=== PATIENT | male | born 1940 | race Caucasian/White ===

== ENCOUNTER 2022-12-16 13:49 | Emergency (ER) | payer MEDICARE ==
[2022-12-16 14:22] LABS: #Eosinphils 0.1 thou/uL (0.0-0.7); #Lymphocytes 1.1 thou/uL (1.20-3.40); #Monocytes 0.6 thou/uL (0.11-0.59); #Neutrophils 5.5 thou/uL (1.40-6.50); %Basophils 0.5 % (0.0-1.0); %Eosinophils 1.1 % (0.0-10.0); %Lymphocytes 14.8 % (21.0-51.0); %Neutrophils 75.6 % (42.0-75.0); Hemoglobin 7.1 g/dL (14.0-18.0); Mean Corpuscular HGB CONC 33.9 g/dL (32.0-36.0); Mean Corpuscular Hemoglobin 34.5 pg (27.0-31.0); Mean Platelet Volume 7.7 fL (7.4-10.4); Platelet Count 257 10x3/uL (130-400); RBC Distribution Width 14.6 % (11.5-14.5); Red Blood Cell (RBC) Count 2.06 mill/uL (4.70-6.10); White Blood Cell (WBC) Count 7.3 10x3/uL (4.8-10.8)
[2022-12-16 14:46] LABS: ALT (SGPT) Less than 7 U/L (8-55); AST (SGOT) 10 U/L (5-34); Albumin 2.8 g/dL (3.4-4.8); Alkaline Phosphatase 99 U/L (40-110); Anion Gap 12 mmol/L (10-20); BUN (Urea Nitrogen) 26 mg/dL (8.4-25.7); Bilirubin, Total 0.6 mg/dL (0.2-1.2); Calc. Creatinine Clearance 0 mL/min (70-130); Carbon Dioxide 30 mmol/L (23-31); Chloride 99 mmol/L (98-107); Estimated GFR 14; Globulin 2.1 g/dL (2.4-3.5); Glucose 193 mg/dL (83-110); Potassium 3.4 mmol/L (3.5-5.1); Protein, Total 4.9 g/dL (5.8-8.1); Sodium 138 mmol/L (136-145)
== END 2022-12-16 18:34 ==
LOC: ERS 13:49
DX: D63.1 Anemia in chronic kidney disease (principal); I13.2 Hypertensive heart and chronic kidney disease with heart failure and with stage 5 chronic kidney disease, or end stage renal disease; I50.9 Heart failure, unspecified; N18.6 End stage renal disease; E11.22 Type 2 diabetes mellitus with diabetic chronic kidney disease; E78.5 Hyperlipidemia, unspecified; Z79.82 Long term (current) use of aspirin
CPT/HCPCS: 36415; 80053; 85025; 86850; 86900; 86901; 99285

== ENCOUNTER 2022-12-22 00:11 | Inpatient (IN) | payer MEDICARE ==
[2022-12-22] MEDS ORDERED: Cefepime 2 GM VIAL ONE (01:36)
[2022-12-22] MEDS ORDERED: Vancomycin 1.5 GRAM/300 ML BAG 1.5 GM in Premix Bag 1 BAG IVPB SCH (01:45)
[2022-12-22 02:36] LABS: #Eosinphils 0.1 thou/uL (0.0-0.7); #Lymphocytes 0.6 thou/uL (1.20-3.40); #Monocytes 0.3 thou/uL (0.11-0.59); #Neutrophils 7.3 thou/uL (1.40-6.50); %Basophils 0.5 % (0.0-1.0); %Eosinophils 0.9 % (0.0-10.0); %Lymphocytes 6.7 % (21.0-51.0); %Neutrophils 87.9 % (42.0-75.0)
[2022-12-22] MEDS ORDERED: FENTANYL 50 MCG/ML 1 ML VIAL ONE (02:37)
[2022-12-22 02:38] LABS: ALT (SGPT) Less than 7 U/L (8-55); AST (SGOT) 12 U/L (5-34); Albumin 2.8 g/dL (3.4-4.8); Alkaline Phosphatase 98 U/L (40-110); Anion Gap 18 mmol/L (10-20); BUN (Urea Nitrogen) 29 mg/dL (8.4-25.7); Bilirubin, Total 0.6 mg/dL (0.2-1.2); CK (CPK) 26 U/L (30-200); Calc. Creatinine Clearance 0 mL/min (70-130); Calcium 8.4 mg/dL (7.8-10.44); Carbon Dioxide 23 mmol/L (23-31); Chloride 99 mmol/L (98-107); Estimated GFR 10; Globulin 2.5 g/dL (2.4-3.5); Glucose 139 mg/dL (83-110); Potassium 4.2 mmol/L (3.5-5.1); Protein, Total 5.3 g/dL (5.8-8.1); Sodium 136 mmol/L (136-145)
[2022-12-22 03:12] LABS: Hemoglobin 8.5 g/dL (14.0-18.0); Red Blood Cell (RBC) Count 2.68 mill/uL (4.70-6.10); White Blood Cell (WBC) Count 17.3 10x3/uL (4.8-10.8)
[2022-12-22 03:13] LABS: Mean Corpuscular HGB CONC 30.9 g/dL (32.0-36.0); Mean Corpuscular Hemoglobin 31.7 pg (27.0-31.0); Mean Platelet Volume 7.5 fL (7.4-10.4); Platelet Count 306 10x3/uL (130-400); RBC Distribution Width 14.6 % (11.5-14.5)
[2022-12-22 03:38] LABS: CKMB 1.4 ng/mL (0-6.6)
[2022-12-22] MEDS ORDERED: Aspirin Chewable 81 MG TAB ONE (04:07)
[2022-12-22] MEDS ORDERED: Ipratropium/Albuterol 3 ML NEB EZPAP PRN (04:51)
[2022-12-22] MEDS ORDERED: Dextrose 50% Abboject 50 ML SYRINGE SLOW IVP PRN (04:53)
[2022-12-22] MEDS ORDERED: Morphine 2 MG/ML VIAL ONE (04:53)
[2022-12-22] MEDS ORDERED: Dextrose 5% in Water 1,000 ML IV PRN (04:53)
[2022-12-22] MEDS ORDERED: Ipratropium/Albuterol 3 ML NEB ONE (04:53)
[2022-12-22 05:45] LABS: Lactic Acid 2.2 mmol/L (0.5-2.2)
[2022-12-22] MEDS ORDERED: Vancomycin Diaylsis Sliding Scale (Wt 71-99) FS SCH (06:00)
[2022-12-22 06:07] LABS: Troponin I 0.286 ng/mL (< 0.028)
[2022-12-22 07:13] LABS: SARS-CoV-2 NAA Rapid Test Not Detected (NotDetected)
[2022-12-22] MEDS ORDERED: Vancomycin HCl 500 MG in Sodium Chloride 0.9% 100 ML IVPB SCH ×2 (08:00→17:00)
[2022-12-22 08:09] LABS: Troponin I 0.321 ng/mL (< 0.028)
[2022-12-22 08:17] LABS: HBSAB Concentration Less than 8.00 mIU/mL; HBSAg Index 0.24 S/CO (0-0.99); Hep B Core Total Ab Non-Reactive (NonReactive); Hep B Core Total Index 0.05 S/CO (0-0.79); Hep B Surf AB Non-Reactive (NonReactive); Hep B Surf Ag Non-Reactive S/CO (NonReactive); Hep C IgG Ab Non-Reactive (NonReactive); Hep C Index 0.06 S/CO (0-0.79)
[2022-12-22 09:00] LABS: Albumin 2.9 g/dL (3.4-4.8); Anion Gap 14 mmol/L (10-20); BUN (Urea Nitrogen) 32 mg/dL (8.4-25.7); BUN/Creatinine Ratio 5.82; Calc. Creatinine Clearance 0 mL/min (70-130); Calcium 9.1 mg/dL (7.8-10.44); Carbon Dioxide 30 mmol/L (23-31); Chloride 100 mmol/L (98-107); Estimated GFR 10; Glucose 91 mg/dL (83-110); Phosphorus 4.2 mg/dL (2.3-4.7); Potassium 4.1 mmol/L (3.5-5.1); Sodium 140 mmol/L (136-145)
[2022-12-22] MEDS ORDERED: Heparin 10,000 UNITS/ 10 ML VIAL ONE (09:08)
[2022-12-22] MEDS ORDERED: Iopamidol-370 76% 500 ML MDV (1 ML CHARGE) ONE (10:56)
[2022-12-22 11:34] VITALS: BMI 21.0
[2022-12-22] MEDS: Heparin 5,000 UNITS/ML VIAL SC SCH ×2 (12:11→21:37)
[2022-12-22] MEDS ORDERED: Cefepime 0.5 GM, Admixture Fee 1 EACH in Sodium Chloride 0.9% 100 ML IVPB SCH (18:00)
[2022-12-22] MEDS: Midodrine HCl 5 MG TAB PO SCH ×2 (18:20→21:37)
[2022-12-23] MEDS ORDERED: Cefepime 1 GM in Sodium Chloride 0.9% 100 ML IVPB SCH (02:00)
[2022-12-23] MEDS: Midodrine HCl 5 MG TAB PO SCH (09:11)
[2022-12-23] MEDS: Sacubitril 24MG/Valsartan 26 MG TAB PO SCH ×2 (09:11→20:31)
[2022-12-23] MEDS: Heparin 5,000 UNITS/ML VIAL SC SCH ×2 (09:11→20:31)
[2022-12-23 11:12] LABS: #Eosinphils 0.2 thou/uL (0.0-0.7); #Monocytes 0.7 thou/uL (0.11-0.59); #Neutrophils 10.6 thou/uL (1.40-6.50); %Basophils 0.2 % (0.0-1.0); %Eosinophils 1.9 % (0.0-10.0); %Lymphocytes 7.8 % (21.0-51.0); %Monocytes 5.4 % (0.0-10.0); %Neutrophils 84.7 % (42.0-75.0); Hemoglobin 8.6 g/dL (14.0-18.0); Mean Corpuscular HGB CONC 31.6 g/dL (32.0-36.0); Mean Corpuscular Hemoglobin 32.4 pg (27.0-31.0); Mean Platelet Volume 7.2 fL (7.4-10.4); Platelet Count 291 10x3/uL (130-400); RBC Distribution Width 14.5 % (11.5-14.5); Red Blood Cell (RBC) Count 2.66 mill/uL (4.70-6.10); White Blood Cell (WBC) Count 12.6 10x3/uL (4.8-10.8)
[2022-12-23 11:27] LABS: Vancomycin, Random 15.1 ug/mL (See Comment)
[2022-12-23 11:30] LABS: Anion Gap 11 mmol/L (10-20); BUN (Urea Nitrogen) 29 mg/dL (8.4-25.7); Calc. Creatinine Clearance 15 mL/min (70-130); Calcium 8.8 mg/dL (7.8-10.44); Carbon Dioxide 33 mmol/L (23-31); Chloride 99 mmol/L (98-107); Estimated GFR 13; Glucose 143 mg/dL (83-110); Potassium 4.1 mmol/L (3.5-5.1); Sodium 139 mmol/L (136-145)
[2022-12-23] MEDS: Cefepime 0.5 GM, Admixture Fee 1 EACH in Sodium Chloride 0.9% 100 ML IVPB SCH (14:28)
[2022-12-23] MEDS: Ferrous Sulfate 325 MG TAB PO SCH ×2 (14:28→20:31)
[2022-12-23] MEDS: EPOETIN ALFA-EPBX (ESRD) 10,000 UNIT/ML VIAL SC SCH (14:32)
[2022-12-23] MEDS: HumaLOG 300 UNITS/3 ML VIAL SC PRN (18:40)
[2022-12-24 07:24] LABS: #Eosinphils 0.5 thou/uL (0.0-0.7); #Lymphocytes 1.3 thou/uL (1.20-3.40); #Monocytes 0.8 thou/uL (0.11-0.59); #Neutrophils 8.9 thou/uL (1.40-6.50); %Basophils 0.3 % (0.0-1.0); %Eosinophils 4.4 % (0.0-10.0); %Lymphocytes 11.3 % (21.0-51.0); %Monocytes 6.8 % (0.0-10.0); %Neutrophils 77.2 % (42.0-75.0); Hemoglobin 8.2 g/dL (14.0-18.0); Mean Corpuscular HGB CONC 32.5 g/dL (32.0-36.0); Mean Corpuscular Hemoglobin 32.8 pg (27.0-31.0); Mean Platelet Volume 7.2 fL (7.4-10.4); Platelet Count 285 10x3/uL (130-400); RBC Distribution Width 14.6 % (11.5-14.5); White Blood Cell (WBC) Count 11.5 10x3/uL (4.8-10.8)
[2022-12-24 07:32] LABS: Anion Gap 15 mmol/L (10-20); BUN (Urea Nitrogen) 37 mg/dL (8.4-25.7); Calc. Creatinine Clearance 12 mL/min (70-130); Carbon Dioxide 26 mmol/L (23-31); Chloride 100 mmol/L (98-107); Estimated GFR 11; Glucose 130 mg/dL (83-110); Potassium 3.5 mmol/L (3.5-5.1); Sodium 137 mmol/L (136-145)
[2022-12-24] MEDS ORDERED: Albumin 25% 25 GM/100 ML BOT IVPB SCH ×2 (08:45→10:45)
[2022-12-24] MEDS: Ferrous Sulfate 325 MG TAB PO SCH ×3 (08:57→21:46)
[2022-12-24] MEDS: Sacubitril 24MG/Valsartan 26 MG TAB PO SCH ×3 (08:57→21:46)
[2022-12-24] MEDS: Heparin 5,000 UNITS/ML VIAL SC SCH ×2 (08:57→21:46)
[2022-12-24] MEDS ORDERED: Heparin 10,000 UNITS/ 10 ML VIAL ONE (09:03)
[2022-12-24] MEDS: Midodrine HCl 5 MG TAB PO SCH ×3 (09:13→21:46)
[2022-12-24] MEDS: Acetaminophen 325 MG TAB PO PRN (14:58)
[2022-12-24] MEDS: Cefepime 0.5 GM, Admixture Fee 1 EACH in Sodium Chloride 0.9% 100 ML IVPB SCH (16:27)
[2022-12-24] MEDS ORDERED: Vancomycin HCl 750 MG in Sodium Chloride 0.9% 250 ML 250 ML IVPB SCH (17:00)
[2022-12-24] MEDS: Aspirin 81 mg Enteric Coated Tablet PO SCH (21:46)
[2022-12-24] MEDS: Folic Acid/Vit B Comp W-C PO SCH (21:46)
[2022-12-25 06:49] LABS: #Eosinphils 0.4 thou/uL (0.0-0.7); #Lymphocytes 1.6 thou/uL (1.20-3.40); #Monocytes 0.9 thou/uL (0.11-0.59); #Neutrophils 7.7 thou/uL (1.40-6.50); %Basophils 0.3 % (0.0-1.0); %Eosinophils 3.9 % (0.0-10.0); %Monocytes 8.3 % (0.0-10.0); %Neutrophils 72.5 % (42.0-75.0); Hemoglobin 8.8 g/dL (14.0-18.0); Mean Corpuscular HGB CONC 33.1 g/dL (32.0-36.0); Mean Corpuscular Hemoglobin 33.4 pg (27.0-31.0); Mean Platelet Volume 6.8 fL (7.4-10.4); Platelet Count 294 10x3/uL (130-400); RBC Distribution Width 14.5 % (11.5-14.5); Red Blood Cell (RBC) Count 2.63 mill/uL (4.70-6.10); White Blood Cell (WBC) Count 10.6 10x3/uL (4.8-10.8)
[2022-12-25 07:03] LABS: Anion Gap 13 mmol/L (10-20); BUN (Urea Nitrogen) 23 mg/dL (8.4-25.7); Calc. Creatinine Clearance 17 mL/min (70-130); Calcium 8.2 mg/dL (7.8-10.44); Carbon Dioxide 30 mmol/L (23-31); Chloride 98 mmol/L (98-107); Estimated GFR 16; Glucose 187 mg/dL (83-110); Potassium 3.5 mmol/L (3.5-5.1); Sodium 137 mmol/L (136-145)
[2022-12-25] MEDS: Sacubitril 24MG/Valsartan 26 MG TAB PO SCH ×2 (08:57→20:27)
[2022-12-25] MEDS: Midodrine HCl 5 MG TAB PO SCH ×3 (08:57→20:29)
[2022-12-25] MEDS: Ferrous Sulfate 325 MG TAB PO SCH ×3 (08:57→20:28)
[2022-12-25] MEDS: Heparin 5,000 UNITS/ML VIAL SC SCH ×2 (08:57→20:29)
[2022-12-25] MEDS: Cefepime 0.5 GM, Admixture Fee 1 EACH in Sodium Chloride 0.9% 100 ML IVPB SCH (14:54)
[2022-12-25] MEDS ORDERED: Megestrol Acetate 800 MG/20 ML UDCUP PO SCH (16:00)
[2022-12-25] MEDS: Folic Acid/Vit B Comp W-C PO SCH (20:28)
[2022-12-25] MEDS: Aspirin 81 mg Enteric Coated Tablet PO SCH (20:29)
[2022-12-26] MEDS: HumaLOG 300 UNITS/3 ML VIAL SC PRN ×2 (06:22→17:16)
[2022-12-26 08:09] LABS: #Eosinphils 0.4 thou/uL (0.0-0.7); #Lymphocytes 1.8 thou/uL (1.20-3.40); #Monocytes 0.8 thou/uL (0.11-0.59); #Neutrophils 7.4 thou/uL (1.40-6.50); %Basophils 0.4 % (0.0-1.0); %Eosinophils 3.6 % (0.0-10.0); %Lymphocytes 17.1 % (21.0-51.0); %Neutrophils 70.8 % (42.0-75.0); Hemoglobin 8.9 g/dL (14.0-18.0); Mean Corpuscular HGB CONC 32.6 g/dL (32.0-36.0); Mean Corpuscular Hemoglobin 33.1 pg (27.0-31.0); Platelet Count 298 10x3/uL (130-400); RBC Distribution Width 14.6 % (11.5-14.5); Red Blood Cell (RBC) Count 2.69 mill/uL (4.70-6.10); White Blood Cell (WBC) Count 10.4 10x3/uL (4.8-10.8)
[2022-12-26 08:26] LABS: Vancomycin, Random 20.2 ug/mL (See Comment)
[2022-12-26 08:28] LABS: Anion Gap 15 mmol/L (10-20); BUN (Urea Nitrogen) 37 mg/dL (8.4-25.7); Calc. Creatinine Clearance 12 mL/min (70-130); Calcium 8.6 mg/dL (7.8-10.44); Carbon Dioxide 29 mmol/L (23-31); Chloride 97 mmol/L (98-107); Estimated GFR 10; Glucose 193 mg/dL (83-110); Potassium 3.7 mmol/L (3.5-5.1); Sodium 137 mmol/L (136-145)
[2022-12-26] MEDS ORDERED: Megestrol Acetate 400 MG/10 ML UDCUP PO SCH (09:00)
[2022-12-26] MEDS: Ferrous Sulfate 325 MG TAB PO SCH ×3 (13:12→20:13)
[2022-12-26] MEDS: Megestrol Acetate 800 MG/20 ML UDCUP PO SCH (13:12)
[2022-12-26] MEDS: Heparin 5,000 UNITS/ML VIAL SC SCH ×2 (13:13→20:13)
[2022-12-26] MEDS: Midodrine HCl 5 MG TAB PO SCH ×4 (13:13→20:13)
[2022-12-26] MEDS: Sacubitril 24MG/Valsartan 26 MG TAB PO SCH ×2 (13:13→20:12)
[2022-12-26] MEDS: Cefepime 0.5 GM, Admixture Fee 1 EACH in Sodium Chloride 0.9% 100 ML IVPB SCH (14:35)
[2022-12-26] MEDS ORDERED: Heparin 10,000 UNITS/ 10 ML VIAL ONE (16:00)
[2022-12-26] MEDS ORDERED: Vancomycin 250 MG in Sodium Chloride 0.9% 100 ML IVPB SCH (17:00)
[2022-12-26] MEDS: Aspirin 81 mg Enteric Coated Tablet PO SCH (20:13)
[2022-12-26] MEDS: Folic Acid/Vit B Comp W-C PO SCH (20:13)
[2022-12-27] MEDS: HumaLOG 300 UNITS/3 ML VIAL SC PRN ×2 (05:34→17:25)
[2022-12-27] MEDS: Sacubitril 24MG/Valsartan 26 MG TAB PO SCH ×2 (08:50→21:47)
[2022-12-27] MEDS: Megestrol Acetate 800 MG/20 ML UDCUP PO SCH (08:50)
[2022-12-27] MEDS: Heparin 5,000 UNITS/ML VIAL SC SCH ×2 (08:51→21:48)
[2022-12-27] MEDS: Midodrine HCl 5 MG TAB PO SCH ×3 (08:51→21:48)
[2022-12-27] MEDS: Ferrous Sulfate 325 MG TAB PO SCH ×3 (08:51→21:48)
[2022-12-27] MEDS: Cefepime 0.5 GM, Admixture Fee 1 EACH in Sodium Chloride 0.9% 100 ML IVPB SCH (14:54)
[2022-12-27] MEDS: Sevelamer Carbonate 800 MG TAB PO SCH (17:21)
[2022-12-27] MEDS: Folic Acid/Vit B Comp W-C PO SCH (21:47)
[2022-12-27] MEDS: Atorvastatin Calcium 40 MG TAB PO SCH (21:48)
[2022-12-27] MEDS: Aspirin 81 mg Enteric Coated Tablet PO SCH (21:48)
[2022-12-27] MEDS: Acetaminophen 325 MG TAB PO PRN (21:48)
[2022-12-28 05:40] LABS: #Eosinphils 0.2 thou/uL (0.0-0.7); #Lymphocytes 2.2 thou/uL (1.20-3.40); #Monocytes 0.9 thou/uL (0.11-0.59); #Neutrophils 10.1 thou/uL (1.40-6.50); %Basophils 0.2 % (0.0-1.0); %Eosinophils 1.6 % (0.0-10.0); %Lymphocytes 16.7 % (21.0-51.0); %Monocytes 6.5 % (0.0-10.0); %Neutrophils 75.1 % (42.0-75.0); Mean Corpuscular HGB CONC 31.7 g/dL (32.0-36.0); Mean Corpuscular Hemoglobin 32.5 pg (27.0-31.0); Platelet Count 292 10x3/uL (130-400); RBC Distribution Width 15.5 % (11.5-14.5); Red Blood Cell (RBC) Count 2.76 mill/uL (4.70-6.10); White Blood Cell (WBC) Count 13.4 10x3/uL (4.8-10.8)
[2022-12-28 05:59] LABS: Anion Gap 11 mmol/L (10-20); BUN (Urea Nitrogen) 50 mg/dL (8.4-25.7); Calc. Creatinine Clearance 11 mL/min (70-130); Calcium 9.3 mg/dL (7.8-10.44); Carbon Dioxide 31 mmol/L (23-31); Chloride 101 mmol/L (98-107); Estimated GFR 9; Glucose 242 mg/dL (83-110); Potassium 4.2 mmol/L (3.5-5.1); Sodium 139 mmol/L (136-145)
[2022-12-28] MEDS: HumaLOG 300 UNITS/3 ML VIAL SC PRN ×4 (05:59→20:57)
[2022-12-28] MEDS: Sacubitril 24MG/Valsartan 26 MG TAB PO SCH ×2 (08:50→20:57)
[2022-12-28] MEDS: Sevelamer Carbonate 800 MG TAB PO SCH ×3 (08:50→17:12)
[2022-12-28] MEDS: Ferrous Sulfate 325 MG TAB PO SCH ×3 (08:50→20:57)
[2022-12-28] MEDS: Heparin 5,000 UNITS/ML VIAL SC SCH ×2 (08:50→20:57)
[2022-12-28] MEDS: Midodrine HCl 5 MG TAB PO SCH (08:50)
[2022-12-28] MEDS ORDERED: Sevelamer Carbonate 800 MG TAB PO SCH (09:00)
[2022-12-28] MEDS: Megestrol Acetate 40 MG TAB PO SCH (09:52)
[2022-12-28] MEDS ORDERED: Carvedilol 3.125 MG TAB PO SCH ×2 (10:30→10:45)
[2022-12-28] MEDS: Cefepime 0.5 GM, Admixture Fee 1 EACH in Sodium Chloride 0.9% 100 ML IVPB SCH (15:05)
[2022-12-28] MEDS: Carvedilol 3.125 MG TAB PO SCH (17:12)
[2022-12-28] MEDS: Aspirin 81 mg Enteric Coated Tablet PO SCH (20:57)
[2022-12-28] MEDS: Atorvastatin Calcium 40 MG TAB PO SCH (20:57)
[2022-12-28] MEDS: Folic Acid/Vit B Comp W-C PO SCH (20:57)
[2022-12-29 05:45] LABS: #Basophils 0.1 thou/uL (0.0-0.2); #Eosinphils 0.2 thou/uL (0.0-0.7); #Lymphocytes 2.1 thou/uL (1.20-3.40); #Monocytes 0.8 thou/uL (0.11-0.59); #Neutrophils 10.9 thou/uL (1.40-6.50); %Basophils 0.4 % (0.0-1.0); %Eosinophils 1.7 % (0.0-10.0); %Monocytes 5.9 % (0.0-10.0); Hemoglobin 9.2 g/dL (14.0-18.0); Mean Corpuscular HGB CONC 32.8 g/dL (32.0-36.0); Mean Corpuscular Hemoglobin 33.2 pg (27.0-31.0); Mean Platelet Volume 7.3 fL (7.4-10.4); Platelet Count 266 10x3/uL (130-400); RBC Distribution Width 15.7 % (11.5-14.5); Red Blood Cell (RBC) Count 2.78 mill/uL (4.70-6.10); White Blood Cell (WBC) Count 14.1 10x3/uL (4.8-10.8)
[2022-12-29 06:02] LABS: Anion Gap 18 mmol/L (10-20); BUN (Urea Nitrogen) 69 mg/dL (8.4-25.7); Calc. Creatinine Clearance 9 mL/min (70-130); Calcium 9.6 mg/dL (7.8-10.44); Carbon Dioxide 27 mmol/L (23-31); Chloride 97 mmol/L (98-107); Estimated GFR 7; Glucose 280 mg/dL (83-110); Potassium 4.5 mmol/L (3.5-5.1); Sodium 137 mmol/L (136-145)
[2022-12-29] MEDS: HumaLOG 300 UNITS/3 ML VIAL SC PRN ×3 (06:30→21:28)
[2022-12-29] MEDS: Sevelamer Carbonate 800 MG TAB PO SCH ×3 (09:23→17:17)
[2022-12-29] MEDS: Ferrous Sulfate 325 MG TAB PO SCH ×3 (09:23→21:28)
[2022-12-29] MEDS: Heparin 5,000 UNITS/ML VIAL SC SCH ×2 (09:23→21:28)
[2022-12-29] MEDS: Megestrol Acetate 40 MG TAB PO SCH (09:24)
[2022-12-29] MEDS: Carvedilol 3.125 MG TAB PO SCH ×2 (09:24→17:17)
[2022-12-29] MEDS: Sacubitril 24MG/Valsartan 26 MG TAB PO SCH ×2 (09:24→21:27)
[2022-12-29] MEDS: Insulin Glargine 30 UNITS/0.3 ML VIAL SC SCH (12:32)
[2022-12-29] MEDS: Cefepime 0.5 GM, Admixture Fee 1 EACH in Sodium Chloride 0.9% 100 ML IVPB SCH (14:04)
[2022-12-29] MEDS ORDERED: Heparin 10,000 UNITS/ 10 ML VIAL ONE (15:57)
[2022-12-29] MEDS: Folic Acid/Vit B Comp W-C PO SCH (21:27)
[2022-12-29] MEDS: Aspirin 81 mg Enteric Coated Tablet PO SCH (21:28)
[2022-12-29] MEDS: Atorvastatin Calcium 40 MG TAB PO SCH (21:28)
[2022-12-30] MEDS: HumaLOG 300 UNITS/3 ML VIAL SC PRN ×4 (05:15→21:27)
[2022-12-30 05:57] LABS: #Eosinphils 0.1 thou/uL (0.0-0.7); #Lymphocytes 1.8 thou/uL (1.20-3.40); #Monocytes 0.8 thou/uL (0.11-0.59); #Neutrophils 8.5 thou/uL (1.40-6.50); %Basophils 0.3 % (0.0-1.0); %Eosinophils 0.8 % (0.0-10.0); %Lymphocytes 16.4 % (21.0-51.0); %Monocytes 6.8 % (0.0-10.0); %Neutrophils 75.7 % (42.0-75.0); Hemoglobin 9.2 g/dL (14.0-18.0); Mean Corpuscular HGB CONC 32.5 g/dL (32.0-36.0); Mean Platelet Volume 7.3 fL (7.4-10.4); Platelet Count 273 10x3/uL (130-400); RBC Distribution Width 15.9 % (11.5-14.5); Red Blood Cell (RBC) Count 2.77 mill/uL (4.70-6.10); White Blood Cell (WBC) Count 11.2 10x3/uL (4.8-10.8)
[2022-12-30 06:30] LABS: ALT (SGPT) 10 U/L (8-55); AST (SGOT) 12 U/L (5-34); Albumin 3.2 g/dL (3.4-4.8); Alkaline Phosphatase 92 U/L (40-110); Anion Gap 16 mmol/L (10-20); BUN (Urea Nitrogen) 37 mg/dL (8.4-25.7); Bilirubin, Total 0.3 mg/dL (0.2-1.2); Calc. Creatinine Clearance 13 mL/min (70-130); Calcium 8.9 mg/dL (7.8-10.44); Carbon Dioxide 26 mmol/L (23-31); Chloride 99 mmol/L (98-107); Estimated GFR 12; Globulin 2.1 g/dL (2.4-3.5); Glucose 255 mg/dL (83-110); Potassium 3.8 mmol/L (3.5-5.1); Protein, Total 5.3 g/dL (5.8-8.1); Sodium 137 mmol/L (136-145)
[2022-12-30] MEDS: Megestrol Acetate 40 MG TAB PO SCH (09:27)
[2022-12-30] MEDS: Sacubitril 24MG/Valsartan 26 MG TAB PO SCH ×2 (09:28→21:24)
[2022-12-30] MEDS: Ferrous Sulfate 325 MG TAB PO SCH ×3 (09:28→21:23)
[2022-12-30] MEDS: Insulin Glargine 30 UNITS/0.3 ML VIAL SC SCH (09:29)
[2022-12-30] MEDS: Sevelamer Carbonate 800 MG TAB PO SCH ×3 (09:29→16:26)
[2022-12-30] MEDS: Carvedilol 3.125 MG TAB PO SCH ×2 (09:29→16:26)
[2022-12-30] MEDS: Heparin 5,000 UNITS/ML VIAL SC SCH ×2 (09:29→21:23)
[2022-12-30] MEDS: Cefepime 0.5 GM, Admixture Fee 1 EACH in Sodium Chloride 0.9% 100 ML IVPB SCH (14:00)
[2022-12-30] MEDS: EPOETIN ALFA-EPBX (ESRD) 10,000 UNIT/ML VIAL SC SCH (14:01)
[2022-12-30] MEDS: Acetaminophen 325 MG TAB PO PRN (16:26)
[2022-12-30] MEDS: Aspirin 81 mg Enteric Coated Tablet PO SCH (21:22)
[2022-12-30] MEDS: Atorvastatin Calcium 40 MG TAB PO SCH (21:22)
[2022-12-30] MEDS: Folic Acid/Vit B Comp W-C PO SCH (21:23)
[2022-12-31] MEDS: Ondansetron PF 4 MG/2 ML Vial IVP PRN ×3 (02:06→14:31)
[2022-12-31 05:25] LABS: #Basophils 0.1 thou/uL (0.0-0.2); #Eosinphils 0.1 thou/uL (0.0-0.7); #Neutrophils 14.4 thou/uL (1.40-6.50); %Basophils 0.8 % (0.0-1.0); %Eosinophils 0.4 % (0.0-10.0); %Lymphocytes 11.1 % (21.0-51.0); %Monocytes 5.9 % (0.0-10.0); %Neutrophils 81.8 % (42.0-75.0); Hemoglobin 9.7 g/dL (14.0-18.0); Mean Corpuscular HGB CONC 32.8 g/dL (32.0-36.0); Mean Corpuscular Hemoglobin 33.3 pg (27.0-31.0); Mean Platelet Volume 7.6 fL (7.4-10.4); Platelet Count 266 10x3/uL (130-400); RBC Distribution Width 16.3 % (11.5-14.5); Red Blood Cell (RBC) Count 2.91 mill/uL (4.70-6.10); White Blood Cell (WBC) Count 17.6 10x3/uL (4.8-10.8)
[2022-12-31 05:48] LABS: ALT (SGPT) 13 U/L (8-55); AST (SGOT) 14 U/L (5-34); Albumin 3.4 g/dL (3.4-4.8); Alkaline Phosphatase 86 U/L (40-110); Anion Gap 17 mmol/L (10-20); BUN (Urea Nitrogen) 64 mg/dL (8.4-25.7); Bilirubin, Total 0.3 mg/dL (0.2-1.2); Calc. Creatinine Clearance 10 mL/min (70-130); Calcium 9.6 mg/dL (7.8-10.44); Carbon Dioxide 28 mmol/L (23-31); Chloride 99 mmol/L (98-107); Estimated GFR 8; Globulin 2.2 g/dL (2.4-3.5); Glucose 278 mg/dL (83-110); Potassium 4.5 mmol/L (3.5-5.1); Protein, Total 5.6 g/dL (5.8-8.1); Sodium 139 mmol/L (136-145)
[2022-12-31] MEDS: HumaLOG 300 UNITS/3 ML VIAL SC PRN ×2 (06:20→18:25)
[2022-12-31] MEDS: Ferrous Sulfate 325 MG TAB PO SCH ×3 (10:14→20:06)
[2022-12-31] MEDS: Sevelamer Carbonate 800 MG TAB PO SCH ×4 (10:14→18:27)
[2022-12-31] MEDS: Heparin 5,000 UNITS/ML VIAL SC SCH ×2 (10:15→20:06)
[2022-12-31] MEDS: Insulin Glargine 30 UNITS/0.3 ML VIAL SC SCH (10:15)
[2022-12-31] MEDS: Megestrol Acetate 40 MG TAB PO SCH (10:16)
[2022-12-31] MEDS: Sacubitril 24MG/Valsartan 26 MG TAB PO SCH ×2 (10:16→20:06)
[2022-12-31] MEDS: Carvedilol 3.125 MG TAB PO SCH ×2 (10:22→20:06)
[2022-12-31] MEDS ORDERED: Albumin 25% 25 GM/100 ML BOT IVPB PRN (11:12)
[2022-12-31] MEDS: Cefepime 0.5 GM, Admixture Fee 1 EACH in Sodium Chloride 0.9% 100 ML IVPB SCH (15:21)
[2022-12-31] MEDS ORDERED: Heparin 10,000 UNITS/ 10 ML VIAL ONE (15:32)
[2022-12-31] MEDS ORDERED: Ondansetron ODT 4 MG TAB PO PRN (17:09)
[2022-12-31] MEDS: Aspirin 81 mg Enteric Coated Tablet PO SCH (20:06)
[2022-12-31] MEDS: Folic Acid/Vit B Comp W-C PO SCH (20:06)
[2022-12-31] MEDS: Atorvastatin Calcium 40 MG TAB PO SCH (20:06)
[2022-12-31] MEDS ORDERED: Carvedilol 3.125 MG TAB PO SCH (21:00)
[2023-01-01] MEDS: Ondansetron PF 4 MG/2 ML Vial IVP PRN (04:19)
[2023-01-01] MEDS: HumaLOG 300 UNITS/3 ML VIAL SC PRN ×4 (06:05→20:55)
[2023-01-01 07:09] LABS: #Eosinphils 0.1 thou/uL (0.0-0.7); #Lymphocytes 1.9 thou/uL (1.20-3.40); #Monocytes 0.8 thou/uL (0.11-0.59); %Basophils 0.1 % (0.0-1.0); %Eosinophils 0.3 % (0.0-10.0); %Lymphocytes 9.4 % (21.0-51.0); %Monocytes 4.2 % (0.0-10.0); Hemoglobin 9.1 g/dL (14.0-18.0); Mean Corpuscular HGB CONC 32.3 g/dL (32.0-36.0); Mean Corpuscular Hemoglobin 33.5 pg (27.0-31.0); Mean Platelet Volume 7.5 fL (7.4-10.4); Platelet Count 291 10x3/uL (130-400); RBC Distribution Width 16.5 % (11.5-14.5); Red Blood Cell (RBC) Count 2.73 mill/uL (4.70-6.10); White Blood Cell (WBC) Count 19.7 10x3/uL (4.8-10.8)
[2023-01-01 07:32] LABS: ALT (SGPT) 16 U/L (8-55); AST (SGOT) 17 U/L (5-34); Albumin 3.7 g/dL (3.4-4.8); Alkaline Phosphatase 81 U/L (40-110); Anion Gap 19 mmol/L (10-20); BUN (Urea Nitrogen) 48 mg/dL (8.4-25.7); Bilirubin, Total 0.3 mg/dL (0.2-1.2); Calc. Creatinine Clearance 14 mL/min (70-130); Calcium 9.8 mg/dL (7.8-10.44); Carbon Dioxide 26 mmol/L (23-31); Chloride 98 mmol/L (98-107); Estimated GFR 13; Globulin 2.3 g/dL (2.4-3.5); Glucose 306 mg/dL (83-110); Potassium 4.7 mmol/L (3.5-5.1); Sodium 138 mmol/L (136-145)
[2023-01-01] MEDS: Insulin Glargine 30 UNITS/0.3 ML VIAL SC SCH (08:13)
[2023-01-01] MEDS: Sacubitril 24MG/Valsartan 26 MG TAB PO SCH ×2 (08:13→20:45)
[2023-01-01] MEDS: Heparin 5,000 UNITS/ML VIAL SC SCH ×2 (08:13→20:45)
[2023-01-01] MEDS: Sevelamer Carbonate 800 MG TAB PO SCH ×3 (08:13→16:16)
[2023-01-01] MEDS: Ferrous Sulfate 325 MG TAB PO SCH ×3 (08:14→20:45)
[2023-01-01] MEDS: Megestrol Acetate 40 MG TAB PO SCH (08:14)
[2023-01-01] MEDS: Carvedilol 3.125 MG TAB PO SCH ×2 (08:14→20:45)
[2023-01-01] MEDS: Cefepime 0.5 GM, Admixture Fee 1 EACH in Sodium Chloride 0.9% 100 ML IVPB SCH (14:35)
[2023-01-01] MEDS: Aspirin 81 mg Enteric Coated Tablet PO SCH (20:45)
[2023-01-01] MEDS: Folic Acid/Vit B Comp W-C PO SCH (20:45)
[2023-01-01] MEDS: Atorvastatin Calcium 40 MG TAB PO SCH (20:45)
[2023-01-02] MEDS: HumaLOG 300 UNITS/3 ML VIAL SC PRN ×3 (05:48→20:25)
[2023-01-02 06:05] LABS: Hemoglobin 8.8 g/dL (14.0-18.0); Mean Corpuscular HGB CONC 33.3 g/dL (32.0-36.0); Mean Corpuscular Hemoglobin 33.8 pg (27.0-31.0); Mean Platelet Volume 7.7 fL (7.4-10.4); Platelet Count 298 10x3/uL (130-400); RBC Distribution Width 16.8 % (11.5-14.5); Red Blood Cell (RBC) Count 2.59 mill/uL (4.70-6.10); White Blood Cell (WBC) Count 22.4 10x3/uL (4.8-10.8)
[2023-01-02 06:26] LABS: ALT (SGPT) 14 U/L (8-55); AST (SGOT) 10 U/L (5-34); Albumin 3.3 g/dL (3.4-4.8); Alkaline Phosphatase 99 U/L (40-110); Anion Gap 17 mmol/L (10-20); BUN (Urea Nitrogen) 73 mg/dL (8.4-25.7); Bilirubin, Total 0.3 mg/dL (0.2-1.2); Calc. Creatinine Clearance 11 mL/min (70-130); Calcium 9.8 mg/dL (7.8-10.44); Carbon Dioxide 28 mmol/L (23-31); Chloride 96 mmol/L (98-107); Estimated GFR 9; Globulin 2.1 g/dL (2.4-3.5); Glucose 337 mg/dL (83-110); Potassium 4.8 mmol/L (3.5-5.1); Protein, Total 5.4 g/dL (5.8-8.1); Sodium 136 mmol/L (136-145)
[2023-01-02 06:32] LABS: Band 4 % (5-11); Lymphocytes 12 % (21-51); MDiff Complete? YES; Macrocytosis SLIGHT = 6-15 cells (100X) (0-5/hpf); Monocytes 3 % (0-10); Neutrophil 81 % (42-75)
[2023-01-02] MEDS ORDERED: Heparin 10,000 UNITS/ 10 ML VIAL ONE (08:55)
[2023-01-02] MEDS ORDERED: Albumin 25% 25 GM/100 ML BOT IVPB SCH (10:30)
[2023-01-02] MEDS: Sevelamer Carbonate 800 MG TAB PO SCH ×3 (13:11→17:36)
[2023-01-02] MEDS: Carvedilol 3.125 MG TAB PO SCH ×2 (13:13→20:18)
[2023-01-02] MEDS: Ferrous Sulfate 325 MG TAB PO SCH ×3 (13:14→20:18)
[2023-01-02] MEDS: Heparin 5,000 UNITS/ML VIAL SC SCH ×2 (13:15→20:19)
[2023-01-02] MEDS: Insulin Glargine 30 UNITS/0.3 ML VIAL SC SCH (13:15)
[2023-01-02] MEDS: Megestrol Acetate 40 MG TAB PO SCH (13:16)
[2023-01-02] MEDS: Sacubitril 24MG/Valsartan 26 MG TAB PO SCH ×2 (13:17→20:19)
[2023-01-02] MEDS: Atorvastatin Calcium 40 MG TAB PO SCH (20:18)
[2023-01-02] MEDS: Aspirin 81 mg Enteric Coated Tablet PO SCH (20:18)
[2023-01-02] MEDS: Folic Acid/Vit B Comp W-C PO SCH (20:18)
[2023-01-03] MEDS: Ondansetron PF 4 MG/2 ML Vial IVP PRN ×2 (04:55→19:15)
[2023-01-03] MEDS: HumaLOG 300 UNITS/3 ML VIAL SC PRN ×4 (05:18→20:49)
[2023-01-03 06:09] LABS: #Eosinphils 0.1 thou/uL (0.0-0.7); #Lymphocytes 1.4 thou/uL (1.20-3.40); #Monocytes 0.8 thou/uL (0.11-0.59); #Neutrophils 13.8 thou/uL (1.40-6.50); %Basophils 0.1 % (0.0-1.0); %Eosinophils 0.6 % (0.0-10.0); %Lymphocytes 8.9 % (21.0-51.0); %Monocytes 4.7 % (0.0-10.0); %Neutrophils 85.7 % (42.0-75.0); Mean Corpuscular HGB CONC 32.4 g/dL (32.0-36.0); Mean Corpuscular Hemoglobin 33.8 pg (27.0-31.0); Mean Platelet Volume 7.8 fL (7.4-10.4); Platelet Count 305 10x3/uL (130-400); RBC Distribution Width 16.2 % (11.5-14.5); Red Blood Cell (RBC) Count 2.38 mill/uL (4.70-6.10); White Blood Cell (WBC) Count 16.1 10x3/uL (4.8-10.8)
[2023-01-03 06:23] LABS: ALT (SGPT) 12 U/L (8-55); AST (SGOT) 9 U/L (5-34); Albumin 3.5 g/dL (3.4-4.8); Alkaline Phosphatase 75 U/L (40-110); Anion Gap 17 mmol/L (10-20); BUN (Urea Nitrogen) 51 mg/dL (8.4-25.7); Bilirubin, Total 0.4 mg/dL (0.2-1.2); Calc. Creatinine Clearance 14 mL/min (70-130); Calcium 9.5 mg/dL (7.8-10.44); Carbon Dioxide 26 mmol/L (23-31); Chloride 96 mmol/L (98-107); Estimated GFR 13; Globulin 1.9 g/dL (2.4-3.5); Glucose 299 mg/dL (83-110); Potassium 4.2 mmol/L (3.5-5.1); Protein, Total 5.4 g/dL (5.8-8.1); Sodium 135 mmol/L (136-145)
[2023-01-03] MEDS: Megestrol Acetate 40 MG TAB PO SCH (08:58)
[2023-01-03] MEDS: Sacubitril 24MG/Valsartan 26 MG TAB PO SCH ×2 (08:58→20:34)
[2023-01-03] MEDS: Sevelamer Carbonate 800 MG TAB PO SCH ×3 (08:58→18:02)
[2023-01-03] MEDS: Insulin Glargine 30 UNITS/0.3 ML VIAL SC SCH (08:59)
[2023-01-03] MEDS: Carvedilol 3.125 MG TAB PO SCH ×2 (08:59→20:34)
[2023-01-03] MEDS: Ferrous Sulfate 325 MG TAB PO SCH ×3 (08:59→20:46)
[2023-01-03] MEDS: Heparin 5,000 UNITS/ML VIAL SC SCH ×2 (09:02→20:34)
[2023-01-03] MEDS ORDERED: Iopamidol-370 76% 500 ML MDV (1 ML CHARGE) ONE (12:19)
[2023-01-03] MEDS: Atorvastatin Calcium 40 MG TAB PO SCH (20:46)
[2023-01-03] MEDS: Aspirin 81 mg Enteric Coated Tablet PO SCH (20:46)
[2023-01-03] MEDS: Folic Acid/Vit B Comp W-C PO SCH (20:46)
[2023-01-04 07:58] LABS: #Basophils 0.1 thou/uL (0.0-0.2); #Eosinphils 0.1 thou/uL (0.0-0.7); #Lymphocytes 1.7 thou/uL (1.20-3.40); #Monocytes 0.9 thou/uL (0.11-0.59); #Neutrophils 13.5 thou/uL (1.40-6.50); %Basophils 0.3 % (0.0-1.0); %Eosinophils 0.5 % (0.0-10.0); %Lymphocytes 10.3 % (21.0-51.0); %Monocytes 5.3 % (0.0-10.0); %Neutrophils 83.5 % (42.0-75.0); Hemoglobin 8.1 g/dL (14.0-18.0); Mean Corpuscular HGB CONC 33.1 g/dL (32.0-36.0); Platelet Count 283 10x3/uL (130-400); RBC Distribution Width 17.3 % (11.5-14.5); Red Blood Cell (RBC) Count 2.37 mill/uL (4.70-6.10); White Blood Cell (WBC) Count 16.1 10x3/uL (4.8-10.8)
[2023-01-04 08:18] LABS: ALT (SGPT) 9 U/L (8-55); AST (SGOT) 8 U/L (5-34); Albumin 3.4 g/dL (3.4-4.8); Alkaline Phosphatase 75 U/L (40-110); Anion Gap 17 mmol/L (10-20); BUN (Urea Nitrogen) 76 mg/dL (8.4-25.7); Bilirubin, Total 0.3 mg/dL (0.2-1.2); Calc. Creatinine Clearance 11 mL/min (70-130); Calcium 9.5 mg/dL (7.8-10.44); Carbon Dioxide 29 mmol/L (23-31); Chloride 93 mmol/L (98-107); Estimated GFR 9; Globulin 1.8 g/dL (2.4-3.5); Glucose 224 mg/dL (83-110); Protein, Total 5.2 g/dL (5.8-8.1); Sodium 134 mmol/L (136-145)
[2023-01-04] MEDS: Carvedilol 3.125 MG TAB PO SCH ×2 (10:41→22:43)
[2023-01-04] MEDS: Sacubitril 24MG/Valsartan 26 MG TAB PO SCH ×2 (10:41→22:42)
[2023-01-04] MEDS: Insulin Glargine 30 UNITS/0.3 ML VIAL SC SCH (10:52)
[2023-01-04] MEDS: Heparin 5,000 UNITS/ML VIAL SC SCH ×2 (11:43→22:43)
[2023-01-04] MEDS: Sevelamer Carbonate 800 MG TAB PO SCH ×3 (11:51→18:08)
[2023-01-04] MEDS: Ferrous Sulfate 325 MG TAB PO SCH ×3 (11:52→22:43)
[2023-01-04] MEDS: Megestrol Acetate 40 MG TAB PO SCH (11:52)
[2023-01-04] MEDS: Acetaminophen 500 MG TAB PO PRN (15:56)
[2023-01-04] MEDS: Atorvastatin Calcium 40 MG TAB PO SCH (22:42)
[2023-01-04] MEDS: Aspirin 81 mg Enteric Coated Tablet PO SCH (22:42)
[2023-01-04] MEDS: Folic Acid/Vit B Comp W-C PO SCH (22:43)
[2023-01-04] MEDS: Ondansetron PF 4 MG/2 ML Vial IVP PRN (23:08)
[2023-01-05 05:03] LABS: #Eosinphils 0.1 thou/uL (0.0-0.7); #Lymphocytes 1.7 thou/uL (1.20-3.40); #Monocytes 0.8 thou/uL (0.11-0.59); #Neutrophils 11.7 thou/uL (1.40-6.50); %Basophils 0.1 % (0.0-1.0); %Eosinophils 0.8 % (0.0-10.0); %Lymphocytes 11.6 % (21.0-51.0); %Monocytes 5.9 % (0.0-10.0); %Neutrophils 81.7 % (42.0-75.0); Hemoglobin 8.2 g/dL (14.0-18.0); Mean Corpuscular HGB CONC 33.4 g/dL (32.0-36.0); Mean Corpuscular Hemoglobin 34.8 pg (27.0-31.0); Mean Platelet Volume 7.7 fL (7.4-10.4); Platelet Count 314 10x3/uL (130-400); RBC Distribution Width 17.1 % (11.5-14.5); Red Blood Cell (RBC) Count 2.37 mill/uL (4.70-6.10); White Blood Cell (WBC) Count 14.3 10x3/uL (4.8-10.8)
[2023-01-05 05:23] LABS: ALT (SGPT) 10 U/L (8-55); AST (SGOT) 9 U/L (5-34); Albumin 3.1 g/dL (3.4-4.8); Alkaline Phosphatase 66 U/L (40-110); Anion Gap 19 mmol/L (10-20); BUN (Urea Nitrogen) 93 mg/dL (8.4-25.7); Bilirubin, Total 0.4 mg/dL (0.2-1.2); Calc. Creatinine Clearance 8 mL/min (70-130); Calcium 9.4 mg/dL (7.8-10.44); Carbon Dioxide 27 mmol/L (23-31); Chloride 93 mmol/L (98-107); Estimated GFR 7; Glucose 142 mg/dL (83-110); Potassium 5.3 mmol/L (3.5-5.1); Protein, Total 5.1 g/dL (5.8-8.1); Sodium 134 mmol/L (136-145)
[2023-01-05] MEDS ORDERED: Ondansetron PF 4 MG/2 ML Vial ONE (08:33)
[2023-01-05] MEDS ORDERED: Succinylcholine Chloride 100 MG/5 ML SYRINGE FS ONE (08:33)
[2023-01-05] MEDS: Sevelamer Carbonate 800 MG TAB PO SCH ×3 (09:31→17:26)
[2023-01-05] MEDS ORDERED: Ondansetron HCl/PF 4 MG/2 ML Vial IVP PRN (09:32)
[2023-01-05] MEDS ORDERED: Promethazine HCl 25 MG/ML VIAL IM PRN (09:32)
[2023-01-05] MEDS: Ferrous Sulfate 325 MG TAB PO SCH ×2 (10:28→15:31)
[2023-01-05] MEDS: Carvedilol 3.125 MG TAB PO SCH ×2 (10:28→22:23)
[2023-01-05] MEDS: Insulin Glargine 30 UNITS/0.3 ML VIAL SC SCH (10:28)
[2023-01-05] MEDS: Heparin 5,000 UNITS/ML VIAL SC SCH ×2 (10:28→22:22)
[2023-01-05] MEDS: Sacubitril 24MG/Valsartan 26 MG TAB PO SCH ×2 (10:29→22:23)
[2023-01-05] MEDS: Megestrol Acetate 40 MG TAB PO SCH (10:29)
[2023-01-05] MEDS ORDERED: Heparin 10,000 UNITS/ 10 ML VIAL ONE (11:04)
[2023-01-05] MEDS: Acetaminophen 500 MG TAB PO PRN (17:29)
[2023-01-05] MEDS: Metoclopramide HCl 10 MG/2 ML VIAL IVP SCH (22:22)
[2023-01-05] MEDS: Atorvastatin Calcium 40 MG TAB PO SCH (22:22)
[2023-01-05] MEDS: Folic Acid/Vit B Comp W-C PO SCH (22:23)
[2023-01-05] MEDS: Aspirin 81 mg Enteric Coated Tablet PO SCH (22:23)
[2023-01-06] MEDS ORDERED: Bisacodyl 10 MG SUPP PR PRN (08:20)
[2023-01-06 09:11] LABS: #Eosinphils 0.1 thou/uL (0.0-0.7); #Lymphocytes 1.8 thou/uL (1.20-3.40); #Monocytes 0.9 thou/uL (0.11-0.59); #Neutrophils 10.1 thou/uL (1.40-6.50); %Basophils 0.1 % (0.0-1.0); %Eosinophils 0.7 % (0.0-10.0); %Lymphocytes 14.1 % (21.0-51.0); %Monocytes 6.9 % (0.0-10.0); %Neutrophils 78.1 % (42.0-75.0); Hemoglobin 7.9 g/dL (14.0-18.0); Mean Corpuscular Hemoglobin 34.4 pg (27.0-31.0); Platelet Count 251 10x3/uL (130-400); RBC Distribution Width 17.3 % (11.5-14.5); White Blood Cell (WBC) Count 12.9 10x3/uL (4.8-10.8)
[2023-01-06 09:17] LABS: ALT (SGPT) 9 U/L (8-55); AST (SGOT) 12 U/L (5-34); Albumin 2.9 g/dL (3.4-4.8); Alkaline Phosphatase 60 U/L (40-110); Anion Gap 13 mmol/L (10-20); BUN (Urea Nitrogen) 53 mg/dL (8.4-25.7); Bilirubin, Total 0.4 mg/dL (0.2-1.2); Calc. Creatinine Clearance 12 mL/min (70-130); Calcium 8.5 mg/dL (7.8-10.44); Carbon Dioxide 29 mmol/L (23-31); Chloride 97 mmol/L (98-107); Estimated GFR 11; Glucose 129 mg/dL (83-110); Potassium 4.7 mmol/L (3.5-5.1); Protein, Total 4.9 g/dL (5.8-8.1); Sodium 134 mmol/L (136-145)
[2023-01-06] MEDS: Acetaminophen 500 MG TAB PO PRN ×2 (09:18→15:32)
[2023-01-06] MEDS: Sacubitril 24MG/Valsartan 26 MG TAB PO SCH ×2 (09:19→21:14)
[2023-01-06] MEDS: Sevelamer Carbonate 800 MG TAB PO SCH ×3 (09:19→17:57)
[2023-01-06] MEDS: Megestrol Acetate 40 MG TAB PO SCH (09:20)
[2023-01-06] MEDS: Insulin Glargine 30 UNITS/0.3 ML VIAL SC SCH (09:20)
[2023-01-06] MEDS: Carvedilol 3.125 MG TAB PO SCH ×2 (09:20→21:14)
[2023-01-06] MEDS: Heparin 5,000 UNITS/ML VIAL SC SCH ×2 (09:21→21:16)
[2023-01-06] MEDS: Metoclopramide HCl 10 MG/2 ML VIAL IVP SCH ×2 (09:21→21:14)
[2023-01-06] MEDS: HumaLOG 300 UNITS/3 ML VIAL SC PRN ×2 (13:19→17:57)
[2023-01-06] MEDS: Bisacodyl 10 MG SUPP PR SCH ×2 (15:32→21:14)
[2023-01-06] MEDS: EPOETIN ALFA-EPBX (ESRD) 10,000 UNIT/ML VIAL SC SCH (15:33)
[2023-01-06] MEDS ORDERED: Lidocaine 2% Viscous Solution 10 ML, Aluminum & Magnesium Hydroxide 30 ML SSW SCH (21:00)
[2023-01-06] MEDS ORDERED: Pantoprazole 40 MG VIAL IVP SCH (21:00)
[2023-01-06] MEDS: Folic Acid/Vit B Comp W-C PO SCH (21:14)
[2023-01-06] MEDS: Aspirin 81 mg Enteric Coated Tablet PO SCH (21:14)
[2023-01-06] MEDS: Atorvastatin Calcium 40 MG TAB PO SCH (21:14)
[2023-01-07 00:29] LABS: Actual Bicarbonate (HCO3a) 23.3 mEq/L (22-28); Base Excess (BEa) -2.1 mEq/L (-2.0 to +3.0); CO2 Tension 42.4 mmHg (35.0-45.0); O2 Tension (PaO2), arterial 54.4 mmHg (> 60.0); pH, Arterial 7.36 (7.35-7.45)
[2023-01-07 00:30] LABS: Calcium, Ionized (arterial) 1.14 mmol/L (1.12-1.30); Carboxyhemoglobin (COHb) 0.8 gm% (0.0-3.0); Hemoglobin (Hb) 9.1 g/dL (14.0-18.0); Potassium - ABG Lab 5.37 mmol/L (3.70-5.30)
[2023-01-07 00:31] LABS: Puncture Site RBA
[2023-01-07 00:49] LABS: Hemoglobin 8.7 g/dL (14.0-18.0); Mean Corpuscular HGB CONC 32.2 g/dL (32.0-36.0); Mean Corpuscular Hemoglobin 33.9 pg (27.0-31.0); Mean Platelet Volume 8.3 fL (7.4-10.4); Platelet Count 314 10x3/uL (130-400); RBC Distribution Width 17.3 % (11.5-14.5); Red Blood Cell (RBC) Count 2.58 mill/uL (4.70-6.10); White Blood Cell (WBC) Count 30.1 10x3/uL (4.8-10.8)
[2023-01-07 01:09] LABS: ALT (SGPT) 22 U/L (8-55); AST (SGOT) 23 U/L (5-34); Alkaline Phosphatase 90 U/L (40-110); Anion Gap 21 mmol/L (10-20); BUN (Urea Nitrogen) 76 mg/dL (8.4-25.7); Bilirubin, Total 0.6 mg/dL (0.2-1.2); Calc. Creatinine Clearance 10 mL/min (70-130); Carbon Dioxide 22 mmol/L (23-31); Chloride 98 mmol/L (98-107); Estimated GFR 8; Globulin 2.1 g/dL (2.4-3.5); Glucose 139 mg/dL (83-110); Lactic Acid 5.1 mmol/L (0.5-2.2); Potassium 5.5 mmol/L (3.5-5.1); Protein, Total 5.1 g/dL (5.8-8.1); Sodium 135 mmol/L (136-145)
[2023-01-07 01:21] VITALS: BP 82/46; TEMP 97.1
[2023-01-07] MEDS ORDERED: Morphine 4 MG/ML VIAL SLOW IVP PRN (01:26)
[2023-01-07 01:42] LABS: Anisocytosis SLIGHT = 6-15 cells (100X) (0-5/hpf); Band 8 % (5-11); Lymphocytes 5 % (21-51); MDiff Complete? YES; Metamyelocyte 1 % (0-0); Monocytes 1 % (0-10); Neutrophil 85 % (42-75); Platelet Morphology Comment Appears Adequate; Polychromasia SLIGHT = 2-3 cells (100X) (0-2/hpf); Tear Drops SLIGHT = 2-5 cells (100X) (0-1/hpf)
== END 2023-01-07 01:23 | disposition expired | DRG 871 ==
LOC: ERS 00:11 → ERHOLD 04:13 → NEURO 07:25
PROVIDERS: ADMIT Internal Medicine; ATTEND Hospitalist
PROC: 5A1D70Z Performance of Urinary Filtration, Intermittent, Less than 6 Hours Per Day (ICD-10-PCS; principal; 2022-12-22)
PROC: 4A133R1 Monitoring of Arterial Saturation, Peripheral, Percutaneous Approach (ICD-10-PCS; 2022-12-22)
PROC: 0DJ08ZZ Inspection of Upper Intestinal Tract, Via Natural or Artificial Opening Endoscopic (ICD-10-PCS; 2023-01-05)
DX: A41.50 Gram-negative sepsis, unspecified (principal); G93.41 Metabolic encephalopathy; J96.01 Acute respiratory failure with hypoxia; N18.6 End stage renal disease; J15.6 Pneumonia due to other Gram-negative bacteria; I21.A1 Myocardial infarction type 2; I13.2 Hypertensive heart and chronic kidney disease with heart failure and with stage 5 chronic kidney disease, or end stage renal disease; E46 Unspecified protein-calorie malnutrition; R64 Cachexia; I42.9 Cardiomyopathy, unspecified; Z66 Do not resuscitate; Z51.5 Encounter for palliative care; R65.20 Severe sepsis without septic shock; E78.5 Hyperlipidemia, unspecified; E11.22 Type 2 diabetes mellitus with diabetic chronic kidney disease; D63.1 Anemia in chronic kidney disease; E87.5 Hyperkalemia; K21.00 Gastro-esophageal reflux disease with esophagitis, without bleeding; E11.51 Type 2 diabetes mellitus with diabetic peripheral angiopathy without gangrene; I95.9 Hypotension, unspecified; I48.0 Paroxysmal atrial fibrillation; K31.89 Other diseases of stomach and duodenum; K56.41 Fecal impaction; E11.43 Type 2 diabetes mellitus with diabetic autonomic (poly)neuropathy; K31.84 Gastroparesis; A05.9 Bacterial foodborne intoxication, unspecified; Z99.2 Dependence on renal dialysis; Z95.0 Presence of cardiac pacemaker; Z88.0 Allergy status to penicillin; Z87.891 Personal history of nicotine dependence; Z95.5 Presence of coronary angioplasty implant and graft; Z68.21 Body mass index [BMI] 21.0-21.9, adult; Z85.46 Personal history of malignant neoplasm of prostate
CPT/HCPCS: 36415; 36416; 36600; 71045; 71275; 74018; 74177; 74230; 80048; 80053; 80202; 82040; 82550; 82553; 82805; 83605; 83735; 83880; 84145; 84153; 84484; 85025; 86704; 87040; 87070; 87205; 90935; 93005; 93010; 93306; 94660; 96365; 96366; 96367; 96375; C9113; G0257; J0692; J1644; J1815; J2272; J2405; J2765; J3010; J3370; J3371; J3490; J7050; J7620; P9047; Q5105; Q9967; S0179; U0002